=== PATIENT | female | born 1975 | race African-American/Black ===

== ENCOUNTER 2018-05-01 04:29 | Emergency (ER) | payer SELFPAY ==
--- NOTE | 2018-05-02 08:16 | EKG REPORT ---
SEVERITY:- NORMAL ECG - SINUS RHYTHM : Confirmed by: Karena Yan MD 02-May-2018 08:14:32
== END 2018-05-01 05:00 | disposition left against medical advice (07) ==
LOC: ER 04:29
DX: Z53.21 Procedure and treatment not carried out due to patient leaving prior to being seen by health care provider (principal)
CPT/HCPCS: 93005; 93010